=== PATIENT | male | born 1995 | race African-American/Black ===

== ENCOUNTER 2018-05-18 21:21 | Emergency (ER) | payer OTHER, SELFPAY ==
[2018-05-18 23:33] LABS: Absolute Lymphocytes (CBC) 2.6 K/uL (0.7-4.9); Absolute Monocytes 0.7 K/uL (0.1-1.3); Absolute Neutrophil 4.7 K/uL (1.8-8.0); Basophils % 0.4 % (0-1.3); Eosinophils % 2.2 % (0-4.4); Lymphocytes % 32.2 % (15.3-44.8); MCH 27.4 pg (27.0-35.0); MCV 80.9 fL (80-100); MPV 7.2 fL (7.6-11.3); Monocytes % 8.4 % (3.3-12.3); RBC Red Blood Cell Count 5.56 M/uL (4.33-5.43)
[2018-05-18 23:52] LABS: ALT/SGPT 148 U/L (12-78); AST/SGOT 45 U/L (15-37); Alkaline Phosphatase 59 U/L (45-117); BUN Blood Urea Nitrogen 10 mg/dL (7-18); Bicarbonate 26 mmol/L (21-32); Bilirubin Direct 0.2 mg/dL (0-0.2); Bilirubin Total 0.4 mg/dL (0.2-1.0); Glucose Level 101 mg/dL (74-106); Potassium 3.8 mmol/L (3.5-5.1); Protein, Total 7.8 g/dL (6.4-8.2); Sodium Level 141 mmol/L (136-145); Troponin (Emerg Dept Use Only) < 0.02 ng/mL (0.0-0.045)
--- NOTE | 2018-05-19 00:43 | ER ---
Nurse's Notes [facility] Name: Lorena Manriquez Age: 23 yrs Sex: Male : 1995 Arrival Date: 05/18/2018 Time: 21:32 Bed 25 Private MD: Diagnosis: Acute laryngitis;Dizziness and giddiness Presentation: 05/18 22:12 Presenting complaint: Patient states: dizziness and throat pain. pt seen at [facility] by PCP ak1 with blood work done that resulted negative, strep swab resulted negative. pt seen prior on () negative strep then too. Transition of care: patient was not received from another setting of care. Onset of symptoms is unknown. Risk Assessment: Do you want to hurt yourself or someone else? Patient reports no desire to harm self or others. Initial Sepsis Screen: Does the patient meet any 2 criteria? No. Patient's initial sepsis screen is negative. Does the patient have a suspected source of infection? No. Patient's initial sepsis screen is negative. Note pt stated cc started 2 weeks [employer]. Care prior to arrival: None. 22:12 Method Of Arrival: Ambulatory ak1 22:12 Acuity: [place] 4 ak1 Triage Assessment: 22:14 General: Appears in no apparent distress. Behavior is calm, cooperative. Pain: ak1 Complains of pain in throat and headache. EENT: No signs and/or symptoms were reported regarding the EENT system. Neuro: Level of Consciousness is awake, alert, obeys commands, Oriented to person, place, time, situation, Grounding Engineer are equal bilaterally Moves all extremities. Gait is steady, Speech is normal, Facial symmetry appears normal. Cardiovascular: No deficits noted. Respiratory: No deficits noted. GI: No signs and/or symptoms were reported involving the gastrointestinal system. : No signs and/or symptoms were reported regarding the genitourinary system. Derm: No signs and/or symptoms reported regarding the dermatologic system. Musculoskeletal: No signs and/or symptoms reported regarding the musculoskeletal system. Historical: - Allergies: 22:14 No Known Allergies; ak1 - Home Meds: 22:14 None [Active]; ak1 - PMHx: 22:14 None; ak1 - PSHx: 22:14 bilateral knees; ak1 - Immunization history:: Adult Immunizations unknown. - Social history:: Smoking status: Patient/guardian denies using tobacco. - Ebola Screening: : No symptoms or risks identified at this time. Screenin:16 Abuse screen: Denies threats or abuse. Denies injuries from another. Nutritional ak1 screening: No deficits noted. Tuberculosis screening: No symptoms or risk factors identified. Fall Risk None identified. Assessment: 23:15 Reassessment: No changes from previously documented assessment. Respiratory: Reports mg2 runny nose. EENT: Throat is reddened has enlarged tonsils bilaterally. Vital Signs: 22:14 BP 137 / 84; Pulse 83; Resp 18; Temp 98.6(TE); Pulse Ox 100% on R/A; Weight 108.86 kg ak1 (R); Height 5 ft. 8 in. (172.72 cm) (R); Pain 5/10; 23:40 BP 138 / 81; Pulse 82; Resp 18; Temp 98.4; Pulse Ox 100% on R/A; Pain 2/10; mg2 22:14 Body Mass Index 36.49 (108.86 kg, 172.72 cm) ak1 ED Course: 21:32 Patient arrived in ED. es 22:14 Triage completed. ak1 22:14 Arm band placed on Patient placed in waiting room. ak1 22:16 Patient has correct armband on for positive identification. ak1 22:24 Steve Bello NP is PHCP. pm1 22:24 Zack Cobb MD is Attending Physician. pm1 22:27 Eddie Gomez, BLANCA is Primary Nurse. mg2 23:16 No provider procedures requiring assistance completed. mg2 23:39 Inserted saline lock: 22 gauge in left antecubital area, using aseptic technique. Blood mg2 collected. 23:41 X-ray completed. Portable x-ray completed in exam room. Patient tolerated procedure kw well. 23:41 XRAY Chest (1 view) In Process Unspecified. EDMS 05/19 00:49 IV discontinued, intact, bleeding controlled, No redness/swelling at site. Pressure mg2 dressing applied. Administered Medications: No medications were administered Outcome: 00:43 Discharge ordered by . pm1 00:49 Discharged to home ambulatory, with family. mg2 00:49 Condition: stable 00:49 Discharge instructions given to patient, family, Instructed on discharge instructions, follow up and referral plans. Demonstrated understanding of instructions, follow-up care. 01:00 Patient left the ED. mg2 Signatures: Dispatcher [employer] EDTrixie Aragon Kimberlee kw Krenek, Amber RN RN ak1 Steve Bello NP GENERAL MAINTENANCE TECHNICIAN pm1 Eddie Gomez RN RN mg2 Corrections: (The following items were deleted from the chart) 05/18 23:39 23:16 Patient did not have IV access during this emergency room visit. mg2 mg2
--- NOTE | 2018-05-19 00:43 | EDPHYS ---
Physician Documentation [facility] Name: Lorena Manriquez Age: 23 yrs Sex: Male : 1995 Arrival Date: 05/18/2018 Time: 21:32 Bed 25 Private MD: ED Physician Zack Cobb HPI: 05/19 00:00 This 23 yrs old Black Male presents to ER via Ambulatory with complaints of Sore throat pm1 and dizziness. 00:00 The patient presents with sore throat. The patient describes throat pain as constant, pm1 scratchy. Onset: The symptoms/episode began/occurred 1.5 week(s) ago. Severity of symptoms: in the emergency department the symptoms are unchanged. Modifying factors: The symptoms are alleviated by nothing, the symptoms are aggravated by swallowing, Patient's oral intake status: good. Associated signs and symptoms: Pertinent positives: Dizziness, Pertinent negatives cough, fever. The patient has not experienced similar symptoms in the past. The patient has been recently seen by a physician: the patient's primary care provider, earlier today, with similar presenting complaints, and apparently given a diagnosis of laryngitis , lab tests were done, negative strep, normal TSH, and normal BMP. 00:00 Patient presenting today because he was feeling faint with his sore throat. pm1 Historical: - Allergies: 05/18 22:14 No Known Allergies; ak1 - Home Meds: 22:14 None [Active]; ak1 - PMHx: 22:14 None; ak1 - PSHx: 22:14 bilateral knees; ak1 - Immunization history:: Adult Immunizations unknown. - Social history:: Smoking status: Patient/guardian denies using tobacco. - Ebola Screening: : No symptoms or risks identified at this time. ROS: 05/19 00:00 Constitutional: Negative for fever, chills, and weight loss, Eyes: Negative for injury, pm1 pain, redness, and discharge, ENT: Negative for injury, pain, and discharge, Neck: Negative for injury, pain, and swelling, Cardiovascular: Negative for chest pain, palpitations, and edema, Respiratory: Negative for shortness of breath, cough, wheezing, and pleuritic chest pain, Abdomen/GI: Negative for abdominal pain, nausea, vomiting, diarrhea, and constipation, Back: Negative for injury and pain, : Negative for injury, bleeding, discharge, and swelling, MS/Extremity: Negative for injury and deformity, Skin: Negative for injury, rash, and discoloration, Neuro: Negative for headache, weakness, numbness, tingling, and seizure. Exam: 00:00 Constitutional: This is a well developed, well nourished patient who is awake, alert, pm1 and in no acute distress. Head/Face: Normocephalic, atraumatic. Eyes: Pupils equal round and reactive to light, extra-ocular motions intact. Lids and lashes normal. Conjunctiva and sclera are non-icteric and not injected. Cornea within normal limits. Periorbital areas with no swelling, redness, or edema. ENT: Nares patent. No nasal discharge, no septal abnormalities noted. Tympanic membranes are normal and external auditory canals are clear. Oropharynx with no redness, swelling, or masses, exudates, or evidence of obstruction, uvula midline. Mucous membranes moist. Neck: Trachea midline, no thyromegaly or masses palpated, and no cervical lymphadenopathy. Supple, full range of motion without nuchal rigidity, or vertebral point tenderness. No Meningismus. Chest/axilla: Normal chest wall appearance and motion. Nontender with no deformity. No lesions are appreciated. Cardiovascular: Regular rate and rhythm with a normal S1 and S2. No gallops, murmurs, or rubs. Normal PMI, no JVD. No pulse deficits. Respiratory: Lungs have equal breath sounds bilaterally, clear to auscultation and percussion. No rales, rhonchi or wheezes noted. No increased work of breathing, no retractions or nasal flaring. Abdomen/GI: Soft, non-tender, with normal bowel sounds. No distension or tympany. No guarding or rebound. No evidence of tenderness throughout. Back: No spinal tenderness. No costovertebral tenderness. Full range of motion. Skin: Warm, dry with normal turgor. Normal color with no rashes, no lesions, and no evidence of cellulitis. MS/ Extremity: Pulses equal, no cyanosis. Neurovascular intact. Full, normal range of motion. 00:00 Neuro: Orientation: is normal, Mentation: is normal, Cranial nerves: CN II- XII are normal as tested, Cerebellar function: normal finger to nose testing, heel to rivers testing is normal, Motor: moves all fours, Sensation: is normal, no obvious gross deficits, Gait: is steady, at a normal pace, without difficulty. Vital Signs: 05/18 22:14 BP 137 / 84; Pulse 83; Resp 18; Temp 98.6(TE); Pulse Ox 100% on R/A; Weight 108.86 kg ak1 (R); Height 5 ft. 8 in. (172.72 cm) (R); Pain 5/10; 23:40 BP 138 / 81; Pulse 82; Resp 18; Temp 98.4; Pulse Ox 100% on R/A; Pain 2/10; mg2 22:14 Body Mass Index 36.49 (108.86 kg, 172.72 cm) ak1 MDM: 22:45 Patient medically screened. pm1 05/19 00:40 ED course: Patient requesting medications for reflux. Will discharge home with Pepcid. pm1 00:41 Data reviewed: vital signs. Data interpreted: Pulse oximetry: on room air is 100 %. pm1 Interpretation: normal. Counseling: I had a detailed discussion with the patient and/or guardian regarding: the historical points, exam findings, and any diagnostic results supporting the discharge/admit diagnosis, lab results, radiology results, the need for outpatient follow up, to return to the emergency department if symptoms worsen or persist or if there are any questions or concerns that arise at home. 05/18 23:19 Order name: Magnesium; Complete Time: 00:37 pm1 05/18 23:19 Order name: LFT's; Complete Time: 00:37 pm1 05/18 23:19 Order name: Basic Metabolic Panel; Complete Time: 00:37 pm1 05/18 23:19 Order name: CBC with Diff; Complete Time: 00:37 pm1 05/18 23:19 Order name: Troponin (emerg Dept Use Only); Complete Time: 00:37 pm1 05/18 23:19 Order name: [place] Screen Profile; Complete Time: 00:37 pm1 05/18 23:19 Order name: XRAY Chest (1 view) pm1 05/18 23:19 Order name: EKG; Complete Time: 23:20 pm1 05/18 23:19 Order name: Cardiac monitoring; Complete Time: 23:38 pm1 05/18 23:19 Order name: EKG - Nurse/Tech; Complete Time: 23:39 pm1 05/18 23:19 Order name: IV Saline Lock; Complete Time: 23:39 pm1 05/18 23:19 Order name: Labs collected and sent; Complete Time: 23:39 pm1 05/18 23:19 Order name: O2 Per Protocol; Complete Time: 23:39 pm1 05/18 23:19 Order name: O2 Sat Monitoring; Complete Time: 23:39 pm1 Administered Medications: No medications were administered Disposition: 05/19/18 00:43 Discharged to Home. Impression: Acute laryngitis, Dizziness and giddiness. - Condition is Stable. - Discharge Instructions: Laryngitis. - Prescriptions for Naprosyn 500 mg Oral Tablet - take 1 tablet by ORAL route 2 times per day take with food; 30 tablet. Pepcid 20 mg Oral Tablet - take 1 tablet by ORAL route every 12 hours for 10 days; 20 tablet. - Medication Reconciliation Form, Thank You Letter, Antibiotic Education, Prescription Opioid Use, Work release form form. - Follow up: Emergency Department; When: As needed; Reason: Worsening of condition. Follow up: Private Physician; When: 2 - 3 days; Reason: Recheck today's complaints, Continuance of care, Re-evaluation by your physician. - Problem is new. - Symptoms have improved. Addendum: 05/21/2018 04:06 Co-signature as Attending Physician, Zack Cobb MD. g s Signatures: Dispatcher [employer] EDDeepti Salamanca, RN RN ak1 Steve Bello, INFECTION CONTROL PREVENTIONIST INFECTION CONTROL PREVENTIONIST pm1 Zack Cobb MD MD gs Eddie Gomez, RN RN mg2 Corrections: (The following items were deleted from the chart) 05/19 01:00 00:43 05/19/2018 00:43 Discharged to Home. Impression: Acute laryngitis; Dizziness and mg2 giddiness. Condition is Stable. Forms are Medication Reconciliation Form, Thank You Letter, Antibiotic Education, Prescription Opioid Use. Follow up: Emergency Department; When: As needed; Reason: Worsening of condition. Follow up: Private Physician; When: 2 - 3 days; Reason: Recheck today's complaints, Continuance of care, Re-evaluation by your physician. Problem is new. Symptoms have improved. pm1
--- NOTE | 2018-05-19 11:47 | EKG ---
Test Date: 2018-05-18 Test Time: 23:31:56 Shoulder Pad Molder: MG MEASUREMENT RESULTS: Intervals: Rate: 60 NC: 180 QRSD: 86 QT: 396 QTc: 396 [place]: P: 24 NC: 180 QRS: 58 T: 19 INTERPRETIVE STATEMENTS: Normal sinus rhythm Nonspecific ST abnormality Abnormal ECG No previous ECG available for comparison Electronically Signed On 05-19-18 11:45:31 ASBESTOS HANDLER by Dickson Duran
--- NOTE | 2018-05-19 13:08 | RAD REPORT ---
EXAM DESCRIPTION: Ramin Single View05/18/2018 11:43 pm CLINICAL HISTORY: Chest pain COMPARISON: none FINDINGS: The lungs appear clear of acute infiltrate. The heart is probably upper limits normal siz e IMPRESSION: No acute abnormalities displayed
== END 2018-05-19 01:00 | disposition home or self-care (01) ==
LOC: ER 21:21
DX: J04.0 Acute laryngitis (principal)
CPT/HCPCS: 36415; 71045; 80048; 80076; 83735; 84484; 85025; 86308; 93005; 99283